=== PATIENT | female | born 1990 | race Caucasian/White ===

== ENCOUNTER 2025-01-05 23:49 | Emergency (ER) | payer SELFPAY ==
[2025-01-06 00:23] VITALS: BP 153/90; PULSE 94; RESP 18; TEMP 36.8; O2SAT 99; BMI 29.3
--- NOTE | 2025-01-06 00:39 | XR_ITS ---
Examination: PA lateral chest 2 views TECHNIQUE: Upright PA lateral chest 2 views Exam date and time: January 06, 2025 0103 hours INDICATIONS: Nausea coughing beginning 9 days ago. FINDINGS: Normal heart size Lungs are clear. The osseous structures are intact IMPRESSION: No active disease
--- NOTE | 2025-01-06 00:40 | PD.EDRME ---
Rapid Medical Screening Exam RME Arrival date/time: 01/05/25 23:49 34-year-old female recently diagnosed with influenza 1 week ago presents emergency department complaining of cough, vomiting, and diarrhea. Chief Complaint: Nausea/Vomiting/Diarrhea Time Seen by Provider: 01/06/25 00:33 Vital signs: Vital Signs Temperature 98.2 F 01/06/25 00:23 Pulse Rate 94 01/06/25 00:23 Respiratory Rate 18 01/06/25 00:23 Blood Pressure 153/90 H 01/06/25 00:23 Pulse Oximetry (%) 99 01/06/25 00:23 Oxygen Delivery Method Room Air 01/06/25 00:23 Vital signs reviewed by provider: Yes
[2025-01-06 01:06] LABS: Basophils % (Auto) 0 % (0-2.5); Eosinophils # (Auto) 0.1 Thou/mm3 (0.0-0.5); Eosinophils % (Auto) 0 % (0-10); Hematocrit 39.6 % (36.0-46.0); Hemoglobin 13.5 g/dL (12.0-16.0); Immature Granulocytes % (Auto) 0 % (0-0); Immature Granulocytes Auto 0.07 Thou/mm3 (0.00-0.00); Lymphocytes # (Auto) 1.3 Thou/mm3 (1.0-4.8); Lymphocytes % (Auto) 8 % (10-50); Mean Corpuscular HGB Conc 34.1 g/dl (31.0-37.0); Mean Corpuscular Hemoglobin 29.7 pg (25.0-35.0); Mean Corpuscular Volume 87 fL (80-100); Monocytes # (Auto) 0.8 Thou/mm3 (0.0-0.8); Monocytes % (Auto) 5 % (0-12); Neutrophils # (Auto) 14.6 Thou/mm3 (1.8-7.7); Neutrophils % (Auto) 87 % (37-80); Nucleated Red Blood Cell % 0 /100 WBC (0); Platelet Count 256 Thou/mm3 (140-440); RDW Standard Deviation 38.1 fL (36.4-46.3); Red Blood Count 4.54 Miln/mm3 (4.00-5.20); White Blood Count 16.9 Thou/mm3 (3.6-11.0)
[2025-01-06 01:21] LABS: Collection Type, Urine Clean Catch
[2025-01-06 01:25] LABS: Alanine Aminotransferase 17 U/L (10-49); Albumin, Serum 4.9 gm/dL (3.5-5.0); Albumin/Globulin Ratio 1.6 (1.2-2.2); Alkaline Phosphatase 64 U/L (46-116); Anion Gap 8 (7-16); Aspartate Amino Transferase 21 U/L (0-34); BUN/Creatinine Ratio 10 Ratio (12-20); Bilirubin,Total 0.4 mg/dL (0.3-1.2); Blood Urea Nitrogen 8 mg/dL (9-23); Calcium 9.8 mg/dL (8.3-10.6); Calcium (Corrected) 9.8 mg/dL (8.5-10.1); Carbon Dioxide 28.3 mMol/L (20.0-31.0); Chloride 107 mMol/L (98-107); Creatinine (Component) 0.8 mg/dL (0.6-1.3); Estimated Creatinine Clearance 95.3 mL/min (>60); Globulin 3.1 gm/dL (2.3-3.5); Glucose 118 mg/dL (74-106); Lipase 50 U/L (12-53); Osmolality,Calculated 284 (275-295); Sodium 143 mMol/L (136-145); eGFR > 60 See Note
[2025-01-06 01:33] LABS: Bacteria,Urine Rare; Bilirubin,Urine Negative (Negative); Blood,Urine Negative (Negative); Calcium Oxalate Crystals,Urine 2+; Clarity,Urine Clear (Clear/Hazy); Color,Urine Yellow (Lt Yel-Yel); Culture Indicated,Urine Not Indicated; Glucose, Urine Negative (Negative); Ketones,Urine Negative (Negative); Leukocyte Esterase,Urine Negative (Negative); Nitrite,Urine Negative (Negative); Protein,Urine Trace (Neg - Trace); RBC,Urine 3 /hpf (0-3); Specific Gravity,Urine 1.028 (1.001-1.035); Squamous Epithelial Cell,Urine 2 /hpf (0-5); Urobilinogen,Urine Negative mg/dL (0.0-1.0); WBC,Urine 1 /hpf (0-5)
[2025-01-06 01:36] LABS: HCG,Qualitative Serum Negative
[2025-01-06 01:37] LABS: Amphetamine/Methamp Scrn,U Negative (Negative); Barbiturate Screen,Urine Negative (Negative); Benzodiazepines Screen,Urine Negative (Negative); Benzoylecgonine Screen, Ur Negative (Negative); Fentanyl Screen,Urine Negative (Negative); Opiate Screen,Urine Negative (Negative); THC Screen,Urine Negative (Negative)
[2025-01-06] MEDS: ONDANSETRON ODT 4 MG TABRAP PO (01:44)
--- NOTE | 2025-01-06 02:29 | PD.EDNV ---
Nausea/Vomit./Diarrhea-RME/HPI General Chief complaint: Nausea/Vomiting/Diarrhea Stated complaint: VOMITING,DIARRHEA Time Seen by Provider: 01/06/25 00:33 Source: patient Arrival date/time: 01/05/25 23:49 34-year-old female recently diagnosed with influenza 1 week ago presents emergency department complaining of cough, vomiting, and diarrhea. Patient reports cough is productive and is brown/green-colored. patient denies any fever, chills, or any other associated symptom. Mode of arrival: ambulatory Limitations: no limitations RME / HPI RME / HPI Narrative: 01/05/25 23:49 34-year-old female recently diagnosed with influenza 1 week ago presents emergency department complaining of cough, vomiting, and diarrhea. Related Data Previous Rx's ?Medication ?Instructions ?Recorded azithromycin 250 mg tablet See Rx Instructions PO .COMPLEX #6 01/06/25 tabs ondansetron 4 mg disintegrating 4 mg PO Q8H PRN nausea and 01/06/25 tablet vomiting #7 tabs Allergies Allergy/AdvReac Type Severity Reaction Status Date / Time doxycycline Allergy Verified 01/05/25 23:51 Review of Systems Review of Systems Systems Reviewed: All systems reviewed, normal except as documented Constitutional Constitutional: Reports system reviewed and no additional complaints, except as documented, Denies body ache(s), Denies chills and Denies fever(s) Eyes Eyes: Reports system reviewed and no additional complaints, except as documented and Denies change in vision ENT Ears, Nose, Mouth, and Throat: Reports system reviewed and no additional complaints, except as documented, Denies disequilibrium, Denies dizziness, Denies sore throat and Denies vertigo Cardiovascular Cardiovascular: Reports system reviewed and no additional complaints, except as documented, Denies chest pain and Denies dyspnea Respiratory Respiratory: Reports system reviewed and no additional complaints, except as documented, Denies chest congestion, Reports cough and Denies dyspnea Gastrointestinal Gastrointestinal: Reports system reviewed and no additional complaints, except as documented, Denies abdominal pain, Reports loose stools, Reports nausea and Reports vomiting Musculoskeletal Musculoskeletal: Reports system reviewed and no additional complaints, except as documented, Denies abnormal gait and Denies arthralgias Integumentary/Breasts Skin/Breast: Reports system reviewed and no additional complaints, except as documented, Denies erythema, Denies rash and Denies wounds Neurologic Neurologic: Reports system reviewed and no additional complaints, except as documented, Denies abnormal gait, Denies disequilibrium, Denies dizziness and Denies vertigo Past Medical History Social History SMOKING STATUS: Never smoker ED Exam General Limitations: Present no limitations General appearance: Present alert and in no apparent distress Head Head exam: Present atraumatic Eye Eye exam: Present normal appearance, PERRL and EOMI ENT ENT exam: Present normal exam, normal oropharynx and mucous membranes moist Neck Neck exam: Present normal inspection, full ROM and trachea midline Chest Chest inspection: Present normal inspection and symmetric chest wall rise Respiratory Respiratory exam: Present normal lung sounds bilaterally Expanded Respiratory Exam Location: Left: decreased breath sounds (Fine crackles) and Lower: decreased breath sounds (Fine crackles) Cardiovascular Cardiovascular exam: Present regular rate, normal rhythm and normal heart sounds Abdominal Exam Abdominal exam: Present soft and normal bowel sounds Extremities Exam Extremities exam: Present normal inspection and full ROM Back Exam Back exam: Present normal inspection and full ROM Neurological Exam Neurological exam: Present alert, oriented X3 and CN II-XII intact Psychiatric Psychiatric exam: Present normal affect and normal mood Skin Skin exam: Present warm, dry, intact and normal color Course Quality Measures none Orders Category Date Time Status XR chest 2V Stat Exams 01/06/25 00:39 Taken CBC Stat Lab 01/06/25 00:53 Completed CMP [Comprehensive Metabolic Panel] Stat Lab 01/06/25 00:53 Completed Drug Screen,Urine Stat Lab 01/06/25 01:07 Completed HCG,Qualitative Serum Stat Lab 01/06/25 00:53 Completed Lipase Stat Lab 01/06/25 00:53 Completed Urinalysis, C/S if Indicated Stat Lab 01/06/25 01:07 Completed Metoclopramide Inj [Reglan Inj] Med 01/06/25 00:40 Discontinued 10 mg IM X1 ONE Ondansetron Odt [Zofran Odt] Med 01/06/25 01:07 Discontinued 4 mg PO X1 ONE Vital Signs Vital signs: Vital Signs Temperature 98.2 F 01/06/25 00:23 Pulse Rate 94 01/06/25 00:23 Respiratory Rate 18 01/06/25 00:23 Blood Pressure 153/90 H 01/06/25 00:23 Pulse Oximetry (%) 99 01/06/25 00:23 Oxygen Delivery Method Room Air 01/06/25 00:23 99% room air within normal limits Nausea/Vomiting/Diarrhea MDM Narrative MDM Narrative:: 34-year-old female recently diagnosed with influenza 1 week ago presents emergency department complaining of cough, vomiting, and diarrhea. Patient reports cough is productive and is brown/green-colored. patient denies any fever, chills, or any other associated symptom. Patient denies any fever, chills, or any other associated symptom. Abdomen is soft and nontender. Diminished left lower lobe lung sounds with fine crackle on auscultation. CBC remarkable for leukocytosis 16.9. CMP was unremarkable for any gross electrolyte abnormalities, elevated LFTs, or elevated lipase. Urinalysis was unremarkable. Chest x-ray left lower lobe pneumonia based on my interpretation. Patient given medication for nausea with no episodes of vomiting. Patient treated antibiotics instructed to follow-up with primary care provider return to emergency department for any worsening symptoms or as needed. Patient data External records reviewed:: [facility] previous records Clinical information provided by:: patient Social determinants that could affect healthcare access:: none Patient has the following chronic illnesses:: None How is presenting disease/condition affected by chronic disease/condition?: no chronic disease Evaluation data The following diagnostics were reviewed and interpreted by me:: lab results and radiology exam(s) Lab and/or radiology exams considered but not ordered:: Ordered Interpretation Summary: Interpreted by me Medications / Prescriptions Medications / Prescriptions considered but not ordered:: Ordered Medication administrations:: Medication Administration History Discontinued Medications Metoclopramide HCl (Metoclopramide Inj 5 Mg/Ml Vial 2 Ml) 10 mg IM X1 ONE; Protocol Stop: 01/06/25 00:41 Last Admin: 01/06/25 00:51 Dose: Not Given Documented By: ARSH Non-Admin Reason: Patient Refused Ondansetron HCl (Ondansetron Odt 4 Mg Tabrap) 4 mg PO X1 ONE; Protocol Stop: 01/06/25 01:08 Last Admin: 01/06/25 01:44 Dose: 4 mg Documented By: ARSH Given Consultations Consultation(s) initiated? (list below): No Diagnosis Nausea Differential Diagnosis: traveler's diarrhea, food poisoning, gastroenteritis, clostridium difficile infection, drug-induced nausea and vomiting and dehydration Most likely diagnosis given after review of the tests above:: Pneumonia Admission Indicated Admission indicated?: not indicated Admission Request Was there a request for admission?: No Disposition Plan Disposition Plan: Discharge Discharge Attestation Discharge Attestation: The patient and all family members were given an opportunity to ask questions and understood the discharge instructions. Discharge instructions specifically effects, indications for sooner follow up or return to the emergency department, and the expected course of current diagnosis. Patient condition: Stable Discharge Plan Plan Patient Disposition: HOME (Self Care) Disposition Comment: Stable Prescriptions/Referrals Prescriptions/Med Rec: New azithromycin 250 mg tablet See Rx Instructions .ROUTE .COMPLEX Qty: 6 0RF Rx Instructions: For 250 mg dose pack: take 500 mg today (day 1), then 250 mg for 4 days (days 2-5) ondansetron 4 mg tablet,disintegrating 4 mg PO Q8H PRN (Reason: nausea and vomiting) Qty: 7 0RF Problem List Clinical Impression: Pneumonia Patient/Caregiver Discharge Instructions Education Materials: ED Pneumonia (Adult) Additional Instructions: Drink plenty of fluids and get plenty of rest. Take Zofran as needed for any episodes of vomiting. Take antibiotics as prescribed. Follow-up with primary care provider in 2 to 3 days. Return to emergency department for any worsening symptoms or as needed. Print Language: Georgian Stand Alone Forms: Marily Award Info., Work/School Release, Patient Portal Info Letter PA/[employer] Supervising Physician PA/YESSICA Supervising Physician: Dr. Saavedra
== END 2025-01-06 02:48 | disposition home or self-care (01) ==
LOC: SERX 01-06 03:04
PROVIDERS: Emergency Provider Emergency Medicine
DX: J18.9 Pneumonia, unspecified organism (principal)
CPT/HCPCS: 36415; 71046; 80053; 80307; 81001; 83690; 84703; 85025; 99283; Q0162